=== PATIENT | female | born 1960 | race Caucasian/White ===

== ENCOUNTER 2016-07-20 09:39 | Emergency (ER) | payer OTHER ==
[2016-07-20 10:17] LABS: BASOPHILS 0.5 % (0.0-2.0); EOSINOPHILS 1.2 % (0.0-6.0); EOSINOPHILS# 0.1 X 10^3uL (0.0-0.4); HEMATOCRIT 44.1 % (36.0-48.0); HEMOGLOBIN 15.1 g/dL (12.0-16.0); LYMPHOCYTES 26.6 % (20.0-40.0); LYMPHOCYTES# 1.3 X 10^3uL (0.8-3.8); MEAN CELL VOLUME 89.7 fL (80.0-100.0); MEAN CORPUS. HGB CONCENTRATION 34.3 g/dL (32.0-36.0); MEAN CORPUSCULAR HEMOGLOBIN 30.8 pg (29.0-35.0); MEAN PLATELET VOLUME 7.8 fL (7.4-10.4); MONOCYTES 12.2 % (2.0-10.0); MONOCYTES# 0.6 X 10^3uL (0.2-1.0); NEUTROPHILS 59.5 % (54.0-75.0); NEUTROPHILS# 2.7 X 10^3uL (2.6-6.7); PLATELET COUNT 210 X 10^3uL (130-440); RED BLOOD COUNT 4.92 X 10^6uL (4.20-6.10); WHITE BLOOD COUNT 4.7 X 10^3uL (3.9-10.7)
[2016-07-20 10:26] LABS: ALBUMIN 4.8 g/dL (3.5-5.0); ALKALINE PHOSPHATASE 79 U/L (38-126); ALT 33 U/L (9-52); AST 25 U/L (14-36); BILIRUBIN, DIRECT 0.2 mg/dL (0.0-0.4); BILIRUBIN, TOTAL 0.9 mg/dL (0.2-1.3); BLOOD UREA NITROGEN 15 mg/dL (7-17); CALCIUM 10.9 mg/dL (8.4-10.2); CHLORIDE 107 mmol/L (98-107); CREATININE 0.6 mg/dL (0.5-1.0); EST GLOMERULAR FILTRATION RATE > 60 mL/min; GLUCOSE 92 mg/dL (70-100); LIPASE 83 U/L (23-300); POTASSIUM 3.5 mmol/L (3.5-5.1); SODIUM 143 mmol/L (137-145); TOTAL PROTEIN 8.5 g/dL (6.3-8.2)
[2016-07-20] MEDS ORDERED: ONDANSETRON HCL 4 MG/2 ML VIAL ONE (10:27)
--- NOTE | 2016-07-20 12:47 | CT REPORT ---
HISTORY: Abdominal pain. COMPARISON: None. TECHNIQUE: This examination was performed using automated exposure control, adjustment of mA or kV according to patient size, and/or use of iterative reconstruction technique. Multiple contiguous axial images were obtained from the lung bases through the pubic symphysis following administration of intravenous con trast. 100cc Isovue 370 contrast. FINDINGS: LUNGS: There are dependent atelectatic changes. There is a 3 mm solid nodule in the left upper lobe, best seen image 10 of series 2. There is 3 mm solid nodule the right middle lobe, best seen image 21 of series 2. There is a 4 mm solid nodule the left lower lobe, best seen image 19 of series 2. The vi sualized lungs are otherwise clear. Hepatobiliary:No focal hepatic lesions are seen. The portal vein enhances normally. There is no intra hepatic biliary ductal dilatation. The gallbladder is incompletely distended. Spleen: Normal in size and radiographic appearance. Pancreas: No focal pancreatic lesion or pancreatic ductal dilatation. Adrenals:Unremarkable. Kidneys: There is symmetric enhancement of the renal parenchyma. There is no evidence of hydronephro sis or renal cortical mass. Peritoneum: There is no evidence of free fluid or free air. Vessels: Unremarkable. Lymph nodes: There is no lymphadenopathy. Bowel: The stomach is incompletely distended. The small bowel appears unremarkable. . There is well-f ormed stool and contrast throughout the colon. No focal bowel wall thickening is seen. Pelvis: Clips in the pelvis suggest prior surgery. The uterus is not well seen, and may have been rem shirley. The ovaries are normal for the patient's age. The bladder is collapsed. Bones: The bones are normally mineralized and aligned. No blastic or lytic lesions are seen. The sof t tissues appear unremarkable. IMPRESSION: No evidence of appendicitis, hydronephrosis or renal/ureteral calculus. Metallic clips in the pelvis with nonvisualization of the uterus suggests prior hysterectomy. Scattered solid pulmonary micronodules measuring up to 4 mm in size, almost certainly benign. Final Electronic Signature: This report was electronically signed by Addi Carl MD on 07/21/19 17 12:45 PM. ruthie /
--- NOTE | 2016-07-20 13:21 | ER PHYSICIAN DOCUMENTATION ---
Physician Documentation [facility] Name:Viry Brower Age:56 yrs Sex:Female :1960 Arrival Date:07/20/2016 Time:09:39 Bed3 Private MD:Danielle Walker ED PhysicianKayeramonaPrince Disposition: 07/20/16 12:59 Discharged to Home/Self Care. Impression: Abdominal Pain, Right Lower Quadrant. - Condition is Good. - Discharge Instructions: ABDOMINAL PAIN, Unknown Cause, (Female). - Medical Reconciliation form form. - Follow up: Danielle Walker MD; When: As needed; Reason: Continuance of care. - Problem is new. - Symptoms have improved. HPI: 07/20 10:33 This 56 yrs old Female presents to ER via Walk In with complaints of Fever. sc 10:33 The patient reports fever, not measured (subjective). Onset: The symptom(s)/episode sc began/occurred 5 day(s) ago. Associated signs and symptoms: Pertinent positives: abdominal pain, chills. Severity of symptoms: At their worst the symptoms were moderate. The patient has not experienced similar symptoms in the past. Historical: - Allergies: darvocet; Codeine; - Home Meds: 1. None - PMHx: HIGH CHOLESTEROL; OSTEOPOROSIS; - PSHx: Hysterectomy; Tonsillectomy; breast reduction; - Tetanus: < 10 years. - Ebola Screening: : No symptoms or risks identified at this time. . - Immunization history: Flu Vaccine < 1 year. - Social history: Smoking status: Patient states was never smoker of tobacco. ROS: 10:33 Eyes: Negative for injury, pain, redness, and discharge. sc ENT: Negative for injury, pain, and discharge. Neck: Negative for injury, pain, and swelling. Cardiovascular: Negative for chest pain, palpitations, and edema. Respiratory: Negative for shortness of breath, cough, wheezing, and pleuritic chest pain. Back: Negative for injury and pain. Skin: Negative for injury, rash, and discoloration. 10:33 Neuro: Negative for headache, weakness, numbness, tingling, and seizure. sc 10:33 Constitutional: Positive for chills, fever. 10:33 Abdomen/GI: Positive for abdominal pain. Exam: Head/Face: Normocephalic, atraumatic. Eyes: Pupils equal round and reactive to light, extra-ocular motions intact. Lids and lashes normal. Conjunctiva and sclera are non-icteric and not injected. Cornea within normal limits. Periorbital areas with no swelling, redness, or edema. ENT: Nares patent. No nasal discharge, no septal abnormalities noted. Tympanic membranes are normal and external auditory canals are clear. Oropharynx with no redness, swelling, or masses, exudates, or evidence of obstruction, uvula midline. Mucous membranes moist. Neck: Trachea midline, no thyromegaly or masses palpated, and no cervical lymphadenopathy. Supple, full range of motion without nuchal rigidity, or vertebral point tenderness. No meningismus. Chest/axilla: Normal chest wall appearance and motion. Nontender with no deformity. No lesions are appreciated. Cardiovascular: Regular rate and rhythm with a normal S1 and S2. No gallops, murmurs, or rubs. Normal PMI, no JVD. No pulse deficits. Respiratory: Lungs have equal breath sounds bilaterally, clear to auscultation and percussion. No rales, rhonchi or wheezes noted. No increased work of breathing, no retractions or nasal flaring. Back: No spinal tenderness. No costovertebral tenderness. Full range of motion. 10:34 Skin: Warm, dry with normal turgor. Normal color with no rashes, no lesions, and no sc evidence of cellulitis. 10:34 Constitutional: The patient appears alert, awake, uncomfortable. 10:34 Abdomen/GI: Inspection: abdomen appears normal, Bowel sounds: normal, Palpation: mild abdominal tenderness, in the right lower quadrant. Vital Signs: 10:18 BP 137 / 78; Pulse 82; Resp 16; Temp 98.1(O); Pulse Ox 95% on R/A; Weight 58.97 kg (R); lpr Height 5 ft. 6 in. (167.64 cm) (R); Pain 3/10; 12:00 BP 126 / 83 (auto/); tg 12:04 Resp 16; Pulse Ox 92% ; tg 10:18 Body Mass Index 20.98 (58.97 kg, 167.64 cm) lpr MDM: 10:00 Patient medically screened. sc 10:34 Differential diagnosis: viral Infection, gastroenteritis, appy or diverticulitis or sc other abdominal. Data reviewed: vital signs, nurses notes, old medical records, lab test result(s), and as a result, I will continue to observe the patient. 12:53 Counseling: I had a detailed discussion with the patient and/or guardian regarding: the il historical points, exam findings, and any diagnostic results supporting the discharge/admit diagnosis, lab results, radiology results, the need for outpatient follow up, with the patient's primary care provider. Medication response: The patient's symptoms have improved. ED course: benign abdomen, unclear etiology. 07/20 10:21 Order name: CBC AUTO DIF, MDIF/RMOR IF IND; Complete Time: 10:40 EDMS 07/20 10:40 Interpretation: Normal. il 07/20 10:29 Order name: BASIC METABOLIC PANEL; Complete Time: 10:40 EDMS 07/20 10:40 Interpretation: Normal Except: CALCIUM 10.9. il 07/20 10:29 Order name: HEPATIC PANEL; Complete Time: 10:40 EDMS 07/20 10:40 Interpretation: Normal. il 07/20 10:29 Order name: LIPASE; Complete Time: 10:40 EDMS 07/20 10:40 Interpretation: Normal. il 07/20 10:29 Order name: LACTATE; Complete Time: 10:40 EDMS 07/20 10:40 Interpretation: Normal. il 07/20 12:18 Order name: CAT SCAN; ABD/PEL W 12544; Complete Time: 12:59 EDMS 07/20 10:02 Order name: Urine Dip; Complete Time: 10:30 tg Dispensed Medications: 10:25 Drug: NS 0.9% 1000 ml; Route: IV; Rate: bolus; Site: left antecubital; lpr 11:15 Follow up: IV Status: Completed infusion; IV Intake: 1000ml lpr 11:52 Follow up: Response: No adverse reaction; No change in condition; IV Status: Completed lp infusion; IV Intake: 1000ml 12:03 Not Given (Patient Refused): Zofran 4 mg IVP once over 2 mins lpr Point of Care Testing: Urine Dip: 10:21 pH: 5.5; ; Specific [place]: 1.025; Ketones: Trace; Glucose: Negative; Protein: lpr Negative; Leukocytes: Negative; Nitrite: Negative ; Blood: Negative; Bilirubin: Negative ; Urobilinogen: Normal Signatures: Titus Landaverde RN RN tg Angeli Perez, RN RN Prince Souza MD MD sc Roberts, Leslie RN RN Alexandra Wells RN lp
--- NOTE | 2016-07-20 13:21 | ER NURSING DOCUMENTATION ---
Nurse's Notes [facility] Name:Viry Brower Age:56 yrs Sex:Female :1960 Arrival Date:07/20/2016 Time:09:39 Bed3 Private MD:Danielel Walker Diagnosis:Abdominal Pain, Right Lower Quadrant Presentation: 07/20 09:49 Acuity: STEVAN 2 tg 10:14 Presenting complaint: Patient states: RLQ began last Tuesday. Fever/Chills began lpr Tuesday. Denies V/D. Fever/chills have been each night until this am. Saw Dr. Duarte who referred her to the ED for appy w/u. Transition of care: [facility]. 10:14 Method Of Arrival: Walk In lpr Triage Assessment: 10:16 Pertinent positives: abdominal pain. General: Appears in no apparent distress, Behavior lpr is cooperative. Pain: Complains of pain in right lower quadrant. EENT: Oral mucosa is moist. Neuro: Level of Consciousness is awake, alert, obeys commands, Oriented to person, place, time. Cardiovascular: Chest pain is denied. Respiratory: Airway is patent Respiratory effort is even, unlabored, Respiratory pattern is regular, symmetrical. GI: Abdomen is flat, non- distended Reports lower abdominal pain, nausea. GI: Bowel sounds present X 4 quads. : Denies burning with urination, inability to void, incontinence, pain urinary frequency, urgency. Derm: Skin is intact, is healthy with good turgor, Skin is pink, warm & dry. Musculoskeletal: Circulation, motion, and sensation intact Capillary refill < 3 seconds Range of motion intact in all extremities. Historical: - Allergies: darvocet; Codeine; - Home Meds: 1. None - PMHx: HIGH CHOLESTEROL; OSTEOPOROSIS; - PSHx: Hysterectomy; Tonsillectomy; breast reduction; - Tetanus: < 10 years. - Ebola Screening: : No symptoms or risks identified at this time. . - Immunization history: Flu Vaccine < 1 year. - Social history: Smoking status: Patient states was never smoker of tobacco. Screenin:19 Infectious Disease Risk None. Abuse screen: Denies threats or abuse. Nutritional lpr screening: No deficits noted. Assessment: 10:18 See Triage Assessment done by same RN. Neuro: Level of Consciousness is awake, alert, lpr obeys commands, Oriented to person, place, time. Cardiovascular: Chest pain is denied. Respiratory: Airway is patent Respiratory effort is even, unlabored, Respiratory pattern is regular, symmetrical. Derm: Skin is intact, is healthy with good turgor, Skin is pink, warm & dry. 10:31 Reassessment: Patient declines Zofran @ this time. She would like to avoid any lpr medications unless she absolutely needs them.. Respiratory: Breath sounds are clear. GI: Abdomen is flat, Bowel sounds hypoactive in right upper quadrant, left upper quadrant, right lower quadrant and left lower quadrant Abd is soft Abdomen is tender to palpation in right lower quadrant Reports anorexia, normal bowel habits. 12:03 Reassessment: No changes from previously documented assessment. lpr Vital Signs: 10:18 BP 137 / 78; Pulse 82; Resp 16; Temp 98.1(O); Pulse Ox 95% on R/A; Weight 58.97 kg (R); lpr Height 5 ft. 6 in. (167.64 cm) (R); Pain 3/10; 12:00 BP 126 / 83 (auto/); tg 12:04 Resp 16; Pulse Ox 92% ; tg 10:18 Body Mass Index 20.98 (58.97 kg, 167.64 cm) lpr ED Course: 09:43 Patient arrived in ED. ds 09:43 Danielle Walker MD is Private Physician. ds 09:49 Triage completed. tg 09:56 Alexandra Sharma, CARMELA is Primary Nurse. lp 10:00 Prince Dacosta MD is Attending Physician. sc 10:05 Inserted peripheral IV: 20 gauge in left antecubital area and blood collected. tg 10:19 Valuables Remains with patient Patient has correct armband on for positive lpr identification. Placed in gown. Bed in low position. Call light in reach. Side rails up X 1. 10:19 Report given to Angeli Perez RN. lpr 10:25 Pulse Ox - RN Monitoring Only NIBP On - RN Monitoring Only. lpr 10:25 Warm blanket given. Diet: Patient is NPO. lpr 12:18 CAT SCAN; ABD/PEL W 44251 In Process Unspecified. EDMS 12:31 CAT SCAN; ABD/PEL W [id number] Sent. tt 12:54 Danielle Walker MD is Referral Physician. sc Administered Medications: 10:25 Drug: NS 0.9% 1000 ml; Route: IV; Rate: bolus; Site: left antecubital; lpr 11:15 Follow up: IV Status: Completed infusion; IV Intake: 1000ml lpr 11:52 Follow up: Response: No adverse reaction; No change in condition; IV Status: Completed lp infusion; IV Intake: 1000ml 12:03 Not Given (Patient Refused): Zofran 4 mg IVP once over 2 mins lpr Point of Care Testing: Urine Dip: 10:21 pH: 5.5; ; Specific [place]: 1.025; Ketones: Trace; Glucose: Negative; Protein: lpr Negative; Leukocytes: Negative; Nitrite: Negative ; Blood: Negative; Bilirubin: Negative ; Urobilinogen: Normal Intake: 11:15 IV: 1000ml; Total: 1000ml. lpr 11:52 IV: 1000ml; Total: 2000ml. lp Outcome: 12:59 Discharge ordered by . ut 13:19 Discharged to home ambulatory. tg 13:19 Condition: stable 13:19 Discharge Assessment: Patient awake, alert and oriented x 3. No cognitive and/or functional deficits noted. Patient verbalized understanding of disposition instructions. 13:19 Instructed on discharge instructions, follow up and referral plans. 13:19 IV D/Alexander 13:20 Patient left the ED. tg 07/21 10:33 Discharge F/U Call: Spoke with: patient. Did your discharge instructions answer all lp of your questions? yes Have you made a f/u appointment? yes Signatures: Dispatcher [employer] Titus Chandra RN RN Alexandra Sharma RN RN lp Mindy Lugo, Reg Reg Prince Khan MD MD ut Sierra Dominguez Leslie, RN RN lpr
== END 2016-07-20 13:20 | disposition home or self-care (01) ==
LOC: ER 09:39
DX: R10.31 Right lower quadrant pain (principal); R50.9 Fever, unspecified; E83.52 Hypercalcemia
CPT/HCPCS: 74177; 80048; 80076; 83605; 83690; 85025; 96360; 99284; J2405